=== PATIENT | male | born 1940 | race Caucasian/White ===

== ENCOUNTER → 2018-01-06 | Outpatient (CLI) | payer OTHER ==
[~2018-01-06] MED LIST: ASPI325T39 PO; ATOR10TA82 PO; GABA-113 PO; GLUC10007 PO; ISOS30TA3 PO; MELO7.5T5 PO; MULT-1056 PO; OMEG10002 PO; TAMS0.4C38 PO; TRAZ1TAB52 PO
--- NOTE | 2018-01-06 16:20 | DIAGNOSTIC IMAGING REPORT ---
LUMBAR SPINE 5 VIEWS CLINICAL HISTORY: Lumbago. Right hip pain. FINDINGS: 5 views of the lumbar spine are obtained. No prior studies are available for comparison at the time of dictation. The skeletal structures are osteopenic. There is no radiographic evidence of fracture or malalignment. Vertebral body height and alignment are maintained throughout the lumbar spine. Anterior osteophytes are seen throughout. There are postoperative changes from laminectomy and posterior fusion throughout the lumbar spine. Interpedicular screws are present at L3-L4. The orthopedic hardware appears intact. Multilevel facet arthropathy is identified. There is advanced disc space narrowing at L3-L4 and L4-L5. Moderate disc space narrowing is seen at T12-L1 and L1-L2. There is associated endplate sclerosis at these levels. The visualized sacrum and bony pelvis are intact as imaged. Sclerotic change is seen in the sacroiliac joints, right greater than left. A neurostimulator device is in place. Leads are seen posteriorly on the lateral view at the level of L1-L2. No bowel obstruction is identified. Nonobstructing right renal calculi are questioned. IMPRESSION: 1. No acute bony abnormality is identified involving the lumbar spine. 2. Osteopenia with postoperative and spondylotic changes as above. Dictated: 01/06/2018 3:59 PM Transcribed: 01/06/2018 4:20 PM [email or web address] Electronically signed by: Percy Hernandez M.D. 01/06/2018 4:40 PM Dictated Date/Time: 01/06/2018 3:59 PM
== END | disposition home or self-care (01) ==
LOC: C.RADBC 15:35
PROVIDERS: ATTEND Physician Assistant Medical
DX: M54.5 Low back pain (principal); M46.1 Sacroiliitis, not elsewhere classified; M85.88 Other specified disorders of bone density and structure, other site